=== PATIENT | female | born 1965 | race Caucasian/White ===

== ENCOUNTER 2018-03-12 20:09 | Emergency (ER) | payer OTHER ==
[~2018-03-12] VITALS: Ht 165.1 cm; Wt 136.4 kg
[2018-03-12 21:03] VITALS: BP 150/92
== END 2018-03-12 21:04 | disposition home or self-care (01) ==
LOC: EME 20:09
DX: H65.91 Unspecified nonsuppurative otitis media, right ear (principal); Z96.22 Myringotomy tube(s) status; Z88.0 Allergy status to penicillin; F17.200 Nicotine dependence, unspecified, uncomplicated
CPT/HCPCS: 99281; 99283